=== PATIENT | male | born 1980 ===

== ENCOUNTER 2017-11-25 12:59 | Emergency (ER) | payer SELFPAY ==
[~2017-11-25] VITALS: Ht 180.3 cm; Wt 99.8 kg
--- NOTE | 2017-11-25 13:05 | Emergency Room Report ---
History of Present Illness General Chief Complaint: Altered Mental Status Source: EMS Present Illness HPI Patient persist by paramedics for change in mental status Patient was found on the street unresponsive Paramedics did not see any obvious trauma Patient appears to be maintaining airway appropriate he and was brought to the emergency room At this time the history of present illness is significantly limited Unknown duration of time on the ground unknown past medical history Paramedics did not report any obvious trauma at the scene Allergies: Coded Allergies: UNABLE TO ASSESS (Unverified , 11/25/17) Patient altered Patient History Limited by: medical condition Past Medical History: see triage record Pertinent Family History: unable to obtain Reviewed Nursing Documentation: PMH: Agreed; PSxH: Agreed Nursing Documentation-PMH Past Medical History Deferred: Pt Cognitively Impaired Review of Systems All Other Systems: limited - Other than the ones mentioned in the history of present illness all others are reviewed however they do stay limited due to the patient's mental status Physical Exam Vital Signs Date Time Temp Pulse Resp B/P (MAP) Pulse Ox O2 Delivery O2 Flow Rate FiO2 11/25/17 12:42 98.9 109 12 154/86 99 Room Air 99.0 Sp02 EP Interpretation: reviewed, normal General Appearance: other - Patient is unresonsive to physical and verbal stimuli Head: normocephalic, other - Mild abrasion to the right lateral eyebrow area Eyes: bilateral eye PERRL ENT: normal pharynx, no angioedema Neck: supple Respiratory: lungs clear, normal breath sounds, no rhonchi, no retraction, no accessory muscle use Cardiovascular #1: regular rate, rhythm, no edema Gastrointestinal: non tender, soft, no mass Musculoskeletal: other - Patient does not withdraw from stimuli Neurologic: other - Significantly decreased GCS, patient however maintaining appropriate airway Skin: normal color, no rash, warm/dry, other - Mild abrasion facial area Lymphatic: no adenopathy Medical Decision Making Last Vital Signs Date Time Temp Pulse Resp B/P (MAP) Pulse Ox O2 Delivery O2 Flow Rate FiO2 11/25/17 12:42 98.9 109 12 154/86 99 Room Air 99.0 Walter Davis DO Nov 25, 2017 13:05
[2017-11-25 13:14] VITALS: BP 154/86
[2017-11-25 13:32] LABS: ANION GAP 14 mmol/L (5-15); BASOPHILS % (AUTO) 0.8 % (0.0-2.0); BLOOD UREA NITROGEN 13 mg/dL (7-18); CALCIUM 8.9 MG/DL (8.5-10.1); CARBON DIOXIDE 23 MMOL/L (21-32); CHLORIDE 91 MMOL/L (98-107); CREATININE 1.2 MG/DL (0.55-1.30); EOSINOPHILS % (AUTO) 0.1 % (0.0-3.0); HEMATOCRIT 38.6 % (42.0-52.0); HEMOGLOBIN 11.9 G/DL (14.2-18.0); LYMPHOCYTES % (AUTO) 10.8 % (20.0-45.0); MEAN CORPUSCULAR VOLUME 74 FL (80-99); MONOCYTES % (AUTO) 9.5 % (1.0-10.0); NEUTROPHILS % (AUTO) 78.8 % (45.0-75.0); PLATELET COUNT 282 K/UL (150-450); POTASSIUM 2.9 MMOL/L (3.5-5.1); RED BLOOD COUNT 5.21 M/UL (4.70-6.10); RED CELL DISTRIBUTION WIDTH 11.1 % (11.6-14.8); SODIUM 128 MMOL/L (136-145); WHITE BLOOD COUNT 7.8 K/UL (4.8-10.8)
[2017-11-25 13:43] LABS: ALANINE AMINOTRANSFERASE 23 U/L (12-78); ALBUMIN/GLOBULIN RATIO 1.3 (1.0-2.7); ALKALINE PHOSPHATASE 61 U/L (46-116); ASPARTATE AMINO TRANSFERASE 24 U/L (15-37)
[2017-11-25 16:12] VITALS: BP 132/80
[2017-11-25 18:40] VITALS: BP 134/76
[2017-11-25 20:00] VITALS: BP 132/71
[2017-11-25 20:35] VITALS: BP 132/71
--- NOTE | 2017-11-26 07:54 | Diagnostic Imaging Report ---
Indication: Altered mental status Technique: Continuous helical CT scanning of the head was performed without intravenous contrast material. Axial and coronal 5 mm sections were generated. Radiation dose was minimized using automated exposure control Dose: Total Dose Length Product - DLP 1759.[address] Dose Index - CTDIvol(s) 70.38,70.38 mGy. Comparison: None FINDINGS: There is no acute intracranial hemorrhage, mass effect or mid line shift. The ventricles are within normal limits. Cisterns are not effaced. Visualized mastoid air cells and paranasal sinuses are unremarkable. No depressed skull fracture. IMPRESSION: No evidence of acute intracranial hemorrhage, mass effect or midline shift. MRI may be obtained for more sensitive evaluation as clinically indicated. This corresponds with the [facility] preliminary report. The CT scanner at [facility] is accredited by the [employer] and the scans are performed using protocols designed to limit radiation exposure to as low as reasonably achievable to attain images of sufficient resolution adequate for diagnostic evaluation.
--- NOTE | 2017-11-26 11:20 | Diagnostic Imaging Report ---
Indication: Chest pain Technique: XRAY Chest 1v Comparison: None Findings: Heart size and mediastinal contours are within normal limits given AP projection, rotation and low lung volumes. There is no focal consolidation, pneumothorax or pleural effusion. Osseous structures demonstrate no acute abnormality. Impression: No radiographic evidence of acute cardiopulmonary disease.
== END 2017-11-25 20:25 | disposition home or self-care (01) ==
LOC: EDBD 12:59 → EMR 13:30
DX: R41.82 Altered mental status, unspecified (principal)
CPT/HCPCS: 36415; 70450; 71045; 80053; 80307; 85025; 96360; 96361; 99284; G0480; 80329